=== PATIENT | female | born 1995 | race Caucasian/White ===

== ENCOUNTER → 2016-10-13 | Outpatient (CLI) | payer BC ==
--- NOTE | 2016-10-13 10:45 | REP ---
Obstetric sonography: History: Supervision of for anatomy. Findings: Scanning through the gravid uterus demonstrates a viable single intrauterine gestation in a breech lie. motion is observed and heart rate is recorded at 136 beats per minute. An anterior grade zero placenta is seen without evidence of previa or abruption. Amniotic fluid is subjectively normal. Closed cervical length is 3.5 cm. No extrauterine abnormality is observed. No anomaly is seen. The following anatomic structures are identified and felt to be sonographically unremarkable: cranium, choroid plexus, cavum, cerebellum and posterior fossa, face and profile, lungs, four-chamber heart with left and right ventricular outflow tract views, diaphragm, left-sided stomach, abdominal wall cord insertion, three-vessel umbilical cord, kidneys and bladder, spine, upper and lower extremities. Biometry chart: BPD 4.0 cm 18 weeks 1 day Head circumference 16.4 cm 19 weeks 1 day Abdominal circumference 14.7 cm 20 weeks 0 days Femur length 3.1 cm 19 weeks 4 days Humeral length 3.0 cm 19 weeks 6 days Cerebellar diameter 2.0 cm 19 weeks 1 day HC/AC ratio normal 1.12. Cephalic index normal 0.65. Estimated weight 306 grams, 0 pounds 10 ounces, 65th percentile for 19 weeks 1 day. Impression: Viable single intrauterine gestation at 19 weeks 1 day by today's composite sonographic criteria. MEIR by today's sonography March 08, 2017. anatomic survey is felt to be complete. Signed by Asim Lebron MD 10/13/2016 01:41 P
== END ==
LOC: M SMT 08:07
PROVIDERS: ATTEND Advanced Practice Midwife
DX: Z34.82 Encounter for supervision of other normal pregnancy, second trimester (principal)

== ENCOUNTER → 2016-12-25 | Outpatient (CLI) | payer OTHER ==
[2016-12-25 17:28] LABS: BASO % 0.3 % (0.0-1.0); EOS # 0.1 K/mm3 (0.0-0.50); EOS % 0.5 % (0.0-3.0); LARGE UNSTAINED CELL # 0.4 K/mm3 (0.0-0.4); LARGE UNSTAINED CELL % 2.6 % (0.0-4.0); LYMPH # 1.5 K/mm3 (1.5-6.5); LYMPH % 9.6 % (24.0-44.0); MEAN CORPUSCULAR HEMOGLOBIN 29.9 pg (27.0-33.0); MEAN CORPUSCULAR HGB CONC 32.9 g/dl (32.0-36.5); MEAN CORPUSCULAR VOLUME 90.8 fl (80.0-96.0); MONO % 6.2 % (0.0-5.0); NEUTROPHILS # 12.4 K/mm3 (1.8-7.7); NEUTROPHILS % 80.8 % (36.0-66.0); PLATELET COUNT, AUTOMATED 240 k/mm3 (150-450); WHITE BLOOD COUNT 15.4 K/mm3 (4.0-10.0)
== END ==
LOC: M WUC 12:58
PROVIDERS: ATTEND Specialist
DX: Z34.82 Encounter for supervision of other normal pregnancy, second trimester (principal)

== ENCOUNTER → 2017-02-04 | Outpatient (REF) | payer OTHER | LOC: M LAB REF 13:12 | PROVIDERS: ATTEND Advanced Practice Midwife | DX: Z34.03 Encounter for supervision of normal first pregnancy, third trimester (principal) ==

== ENCOUNTER → 2017-02-12 | Outpatient (CLI) | payer OTHER ==
[2017-02-12 13:27] LABS: MEAN CORPUSCULAR HEMOGLOBIN 29.1 pg (27.0-33.0); MEAN CORPUSCULAR HGB CONC 32.9 g/dl (32.0-36.5); MEAN CORPUSCULAR VOLUME 88.5 fl (80.0-96.0); RED CELL DISTRIBUTION WIDTH 12.7 % (11.5-14.5); WHITE BLOOD COUNT 10.8 K/mm3 (4.0-10.0)
[2017-02-12 13:43] LABS: ALT/SGPT 21 U/L (12-78); AST/SGOT 15 U/L (15-37); BILIRUBIN,TOTAL 0.6 MG/DL (0.2-1.0); CREATININE FOR GFR 0.74 MG/DL (0.55-1.02); GLOMERULAR FILTRATION RATE > 60.0 (>60); URIC ACID 4.3 MG/DL (2.6-6.0)
[2017-02-12 13:45] LABS: CREATININE CLEARANCE, URINE 140.4 ML/MIN (75-115); CREATININE, SERUM 0.7 MG/DL (0.6-1.0)
== END ==
LOC: M LAB 11:30
PROVIDERS: ATTEND Advanced Practice Midwife
DX: O10.913 Unspecified pre-existing hypertension complicating pregnancy, third trimester (principal)

== ENCOUNTER 2017-02-24 11:06 | Inpatient (IN) | payer OTHER ==
[~2017-02-24] VITALS: Ht 170.2 cm; Wt 86.0 kg
[2017-02-24] VITALS (9 sets, daily range): BP systolic 101–121; BP diastolic 58–80
[2017-02-24] MEDS ORDERED: MORPHINE 10 MG/ML 1ML VIAL IV ONE (11:30)
[2017-02-24 12:10] LABS: MEAN CORPUSCULAR HEMOGLOBIN 28.9 pg (27.0-33.0); MEAN CORPUSCULAR HGB CONC 33.6 g/dl (32.0-36.5); MEAN CORPUSCULAR VOLUME 85.9 fl (80.0-96.0); RED CELL DISTRIBUTION WIDTH 12.6 % (11.5-14.5); WHITE BLOOD COUNT 12.7 K/mm3 (4.0-10.0)
[2017-02-24 12:37] LABS: ALT/SGPT 17 U/L (12-78); AST/SGOT 14 U/L (15-37); BILIRUBIN,TOTAL 0.5 MG/DL (0.2-1.0); CREATININE FOR GFR 0.67 MG/DL (0.55-1.02); GLOMERULAR FILTRATION RATE > 60.0 (>60)
[2017-02-24] MEDS: miSOPROStol 50 MCG 1/2 TAB (S0191) PO SCH ×2 (13:00→16:58)
[2017-02-24] MEDS: PROMETHAZINE INJ 25 MG/ML VIAL (J2550) IV PRN (14:25)
--- NOTE | 2017-02-24 15:19 | HPE ---
DATE OF ADMISSION: 02/24/2017 REASON FOR ADMISSION: Induction of labor for gestational hypertension. HISTORY OF PRESENT ILLNESS: Ms. Carrera is a 21-year-old 1, para 0 who presents at 38 weeks 6 days estimated gestational age by 8 week ultrasound for induction of labor. She is a patient who initially presented with elevated blood pressures that at 37 weeks, she subsequently had been evaluated for preeclampsia , and has had a 24 hour urine protein 280 mg. On day of presentation, she presented to the office with serial mildly elevated blood pressures 140s over 90s. She reports a headache that she describes similar to a migraine, but has been unrelieved with Fioricet, as well as caffeinated beverages, which typical relieves her headache. She reports active movements, denies any vaginal bleeding or leakage of fluid. Her course was initiated in her first trimester, has been appropriate throughout. PAST MEDICAL HISTORY: 1. History of migraines. 2. Gilbert's syndrome. PAST SURGICAL HISTORY: She has had bronchoscopy as well as lumpectomy in 2010 in the right breast, which was benign. ALLERGIES: BACTRIM. MEDICATIONS: Include: - Fioricet - vitamins SOCIAL HISTORY: Denies any alcohol, tobacco or drug use during her . PHYSICAL EXAMINATION: Currently her blood pressure is normotensive. She is afebrile. She has a category 1 heart rate tracing. No contractions on tocometer. General appearance: There is no acute distress. Lungs: Clear to auscultation bilaterally. Cardiovascular: Heart regular rate and rhythm. Abdomen: Soft, gravid, nontender. Estimated weight 3300 grams. Cervical exam: Her cervix is long and closed. Neurological: She is grossly intact. LABS: labs: Blood type is A positive. Hepatitis screen is negative. Rubella is equivocal. RPR is nonreactive. Hepatitis surface antigen is negative. HIV is negative. Hepatitis C is nonreactive. Chlamydia and gonorrhea screens are negative. She has a normal 1 hour Glucola. She is GBS negative. ASSESSMENT: 1. Mrs. Carrera is a 21-year-old 1, para 0 at 38 weeks 6 days estimated gestational age via a first trimester ultrasound with gestational hypertension. 2. Reassuring status. PLAN: 1. Admit to labor and delivery. CBC, RPR, type and screen. 2. The patient was thoroughly counseled in regards to induction of labor and her diagnosis discussed, medication as well as procedures performed in labor and delivery. I have also verbally consented her for emergency surgery, blood products and anesthesia. She desires to proceed with admission. 3. I will initiate her induction with 50 mcg of oral misoprostol. MTDD
[2017-02-24] MEDS ORDERED: PRENTAB9 PO (18:59)
[2017-02-24] MEDS ORDERED: BUTA1CAP PO (18:59)
[2017-02-24] MEDS ORDERED: miSOPROStol 50 MCG 1/2 TAB (S0191) PO SCH (22:24)
[2017-02-25] VITALS (11 sets, daily range): BP systolic 101–155; BP diastolic 54–89
[2017-02-25] MEDS ORDERED: BUTORPHANOL 2 MG/ML INJ (J0595) IV ONE ×2 (02:00→07:15)
[2017-02-25] MEDS: PROMETHAZINE INJ 25 MG/ML VIAL (J2550) IV PRN (02:09)
[2017-02-25] MEDS ORDERED: LR 1,000 ML IV SCH (07:06)
[2017-02-25] MEDS ORDERED: OXYTOCIN DRIP 30 UNITS in APPROPRIATE DILUENT 1 EA IV SCH ×2 (07:15→13:52)
[2017-02-25 07:52] LABS: MEAN CORPUSCULAR HEMOGLOBIN 28.7 pg (27.0-33.0); MEAN CORPUSCULAR VOLUME 86.9 fl (80.0-96.0); RED CELL DISTRIBUTION WIDTH 12.7 % (11.5-14.5)
[2017-02-25] MEDS ORDERED: FENTANYL 2MCG/ML ROPIVACAINE 0.2% IN 0.9% NACL 200ML IVBAG As Ordered ONE (08:11)
[2017-02-25] MEDS: PRENATAL VITAMIN TAB PO SCH (09:00)
[2017-02-25] MEDS ORDERED: REFRIGERATOR IV KEYS XX PRN (09:15)
[2017-02-25] MEDS ORDERED: EPIDURAL/PCA KEYS XX PRN (09:15)
[2017-02-25] MEDS ORDERED: ePHEDrine SULFATE 25 MG/5 ML(5MG/ML) SYRINGE IV PRN (09:15)
[2017-02-25] MEDS ORDERED: FENTANYL/ROPIVACAINE/NACL BAG 200 ML EPIDURAL SCH (09:15)
[2017-02-25] MEDS ORDERED: NALOXONE INJ 0.4 MG/1 ML VIAL (J2310) IV PRN (09:15)
[2017-02-25] MEDS ORDERED: ONDANSETRON 4MG/2ML VIAL (J2405) IV PRN (09:15)
[2017-02-25] MEDS ORDERED: diphenhydrAMINE INJ 50MG/ML VIAL (J1200) IV PRN (09:15)
[2017-02-25] MEDS ORDERED: EPIDURAL COMMENT XX SCH (09:15)
[2017-02-25] MEDS ORDERED: LACTATED RINGER'S 1000 ML IV PRN (09:15)
[2017-02-25] MEDS ORDERED: ACETAMINOPHEN 500 MG TAB PO PRN (14:00)
[2017-02-25] MEDS ORDERED: DOCUSATE SODIUM 100 MG CAP PO PRN (14:00)
[2017-02-25] MEDS ORDERED: RHOGAM 300 MCG (1500 IU) INJ (J2790) IM SCH (14:00)
[2017-02-25] MEDS ORDERED: MEASLES,MUMPS,RUBELLA VACCINE INJ (MMR-II) (90707) SC SCH (14:00)
[2017-02-25] MEDS ORDERED: DIBUCAINE 1% OINTMENT 30GM TOP PRN (14:00)
--- NOTE | 2017-02-25 14:16 | PAIN ---
DATE: 02/24/2017 Antonia is a 21-year-old 1, para 1-0-0-1 now who was admitted to labor and delivery for induction of labor due to gestational hypertension. Misoprostol and IV Pitocin was utilized and labor did ensue. She did utilize an epidural for her labor coping. She progressed to full dilation at 1219 hours. She pushed to a normal spontaneous vaginal delivery of a live female in OA position with restitution to LOT position at 1329 hours. There was no nuchal cord. The shoulders delivered spontaneously and the corpus immediately followed. The was placed on the maternal abdomen, crying and active. Her mouth and nares were bulb suctioned. The cord was clamped times two once pulsations ceased and cut by the father of the baby. A spontaneous expulsion of an intact placenta with three-vessel cord by Zepeda mechanism was at 1336 hours. Uterine hemostasis was achieved with IV Pitocin rapid infusion and uterine fundal massage. Estimated blood loss 400 mL. Perineum and vagina were inspected and noted to be intact. No abrasions or lacerations observed. [place] female weighed 7 pounds, 3182 grams, scores of 8 and 9. Mother plans to breastfeed her daughter, and the family have named her Amanda Layne. At the close of delivery, lap counts and instrument counts were correct and verified.
[2017-02-25] MEDS: IBUPROFEN 800 MG TAB PO PRN (20:30)
[2017-02-26 06:07] VITALS: BP 134/88
[2017-02-26] MEDS: PRENATAL VITAMIN TAB PO SCH (08:04)
[2017-02-26 18:02] VITALS: BP 130/75
[2017-02-26] MEDS ORDERED: PERCOCET 5MG/325MG TAB PO PRN (21:15)
[2017-02-26] MEDS: IBUPROFEN 800 MG TAB PO PRN (21:45)
[2017-02-27 05:39] VITALS: BP 106/59
[2017-02-27] MEDS ORDERED: MOTR200T44 PO (07:33)
[2017-02-27] MEDS ORDERED: ACET50TA PO (07:33)
[2017-02-27] MEDS: PRENATAL VITAMIN TAB PO SCH (08:24)
== END 2017-02-27 10:45 | disposition home or self-care (01) | DRG 775 ==
LOC: M LDI 11:06 → M OBS 02-25 16:35
PROVIDERS: ADMIT Obstetrics & Gynecology; ATTEND Obstetrics & Gynecology
PROC: 10E0XZZ Delivery of Products of Conception, External Approach (ICD-10-PCS; principal; 2017-02-24)
PROC: 3E0DXGC Introduction of Other Therapeutic Substance into Mouth and Pharynx, External Approach (ICD-10-PCS; 2017-02-24)
PROC: 3E033VJ Introduction of Other Hormone into Peripheral Vein, Percutaneous Approach (ICD-10-PCS; 2017-02-24)
DX: O13.4 Gestational [pregnancy-induced] hypertension without significant proteinuria, complicating childbirth (principal); Z37.0 Single live birth; Z3A.38 38 weeks gestation of pregnancy

== ENCOUNTER 2017-11-15 13:38 | Emergency (ER) | payer OTHER | END 2017-11-15 16:12 | disposition home or self-care (01) | LOC: M ED 13:38 | DX: M25.552 Pain in left hip (principal); J45.909 Unspecified asthma, uncomplicated; Q79.6 Ehlers-Danlos syndromes; Z88.1 Allergy status to other antibiotic agents | CPT/HCPCS: 73502 ==